=== PATIENT | male | born 1965 | race Caucasian/White ===

== ENCOUNTER 2016-04-21 15:49 | Outpatient (CLI) | payer MEDICAID | END 2016-04-21 15:50 | disposition home or self-care (01) | DX: R63.4 Abnormal weight loss (principal); R91.8 Other nonspecific abnormal finding of lung field ==

== ENCOUNTER 2016-04-22 07:57 | Outpatient (CLI) | payer MEDICAID | END 2016-04-22 07:58 | disposition home or self-care (01) | DX: R63.4 Abnormal weight loss (principal) ==

== ENCOUNTER 2017-03-07 14:24 | Emergency (ER) | payer MEDICAID ==
[2017-03-07 14:37] VITALS: BP 141/86
--- NOTE | 2017-03-07 14:54 | ED Physician Documentation ---
PD HPI HEENT - Stated complaint Stated Complaint: TOOTH PAIN - Chief complaint Chief Complaint: Heent - History obtained from History obtained from: Patient - History of Present Illness Timing - onset: How many days ago (4) Timing - duration: Days (4) Timing - details: Gradual onset, Still present Location: Tooth Improves: Medication Worsens: Temperatures, Everything Associated symptoms: Congestion, Headache Similar symptoms before: Diagnosis (bad teeth) Recently seen: Not recently seen - Additional information Additional information: 51-year-old male with a history of bad teeth has developed another episode of severe tooth pain. Today this is in the left upper jaw anteriorly and he has been dealing with this for about the last 4 days and is now become intolerable. He has been avoiding the dentist for years and he has multiple broken teeth and multiple missing teeth. Review of Systems Constitutional: denies: Fever Eyes: denies: Decreased vision Ears: denies: Ear pain Nose: reports: Congestion. denies: Rhinorrhea / runny nose Throat: reports: Dental pain / toothache Cardiac: denies: Palpitations Respiratory: denies: Dyspnea, Cough GI: denies: Vomiting, Diarrhea PD PAST MEDICAL HISTORY - Past Medical History Past Medical History: Yes Cardiovascular: None Neuro: Seizure disorder Endocrine/Autoimmune: None GI: None Psych: Depression, Anxiety Other Past Medical History: Last seizure a year ago. Does not take any medication - Past Surgical History Past Surgical History: No - Present Medications Home Medications: Ambulatory Orders Medication Instructions Recorded Confirmed Amoxicillin 875 mg PO BID #20 tablet 03/07/17 - Allergies Allergies/Adverse Reactions: Allergies Allergy/AdvReac Type Severity Reaction Status Date / Time No Known Drug Allergies Allergy Verified 08/20/15 10:48 - Social History Does the pt smoke?: Yes Smoking Status: Current every day smoker Does the pt drink ETOH?: No Does the pt have substance abuse?: No - Immunizations Immunizations are current?: Yes Immunizations: TDAP >10years/unknown - POLST Patient has POLST: No PD ED PE NORMAL - Vitals Vital signs reviewed: Yes (hypertensive) - General General: No acute distress, Well developed/nourished - HEENT HEENT: Atraumatic, PERRL, EOMI, Ears normal, Other (There are multiple broken teeth multiple carious teeth and #11 he is specifically tender and broken off at the gumline.) - Neck Neck: Supple, no meningeal sign, No bony TTP - Cardiac Cardiac: RRR, No murmur - Respiratory Respiratory: No respiratory distress, Clear bilaterally - Abdomen Abdomen: Soft, Non tender - Back Back: No CVA TTP - Derm Derm: Normal color, Warm and dry, No rash - Extremities Extremities: No deformity, No edema - Neuro Neuro: No motor deficit, No sensory deficit Eye Opening: Spontaneous Motor: Obeys Commands Verbal: Oriented GCS Score: 15 - Psych Psych: Normal mood, Normal affect Results - Vitals Vitals: Vital Signs - 24 hr 03/07/17 14:35 Temperature 36.8 C Heart Rate 95 Respiratory 16 Rate Blood Pressure 141/86 H O2 Saturation 98 Oxygen O2 Source Room air PD MEDICAL DECISION MAKING - ED course Complexity details: considered differential, d/w patient ED course: 51-year-old male with multiple carious teeth broken teeth and a specific tooth that is bothering him. He is given a tube of [place] and instructed in its use and this is used to cover the top of #11. Departure - Departure Disposition: 01 Home, Self Care Clinical Impression: Pain, dental Condition: Stable Instructions: ED Tooth Pain Follow-Up: [facility] [Provider Group] Prescriptions: Amoxicillin 875 mg PO BID #20 tablet Comments: Today in the Emergency Department your blood pressure was elevated. This can happen from the stress of the visit itself, from a current illness or circumstance or from uncontrolled hypertension. If you take blood pressure medications take your usual mediations, have your blood pressure re-checked in an appropriate setting and follow up any elevation with your primary care doctor.
== END 2017-03-07 15:12 | disposition home or self-care (01) ==
LOC: ED 14:24
DX: K08.89 Other specified disorders of teeth and supporting structures (principal); R03.0 Elevated blood-pressure reading, without diagnosis of hypertension; F17.200 Nicotine dependence, unspecified, uncomplicated
CPT/HCPCS: 99283

== ENCOUNTER 2018-01-11 23:58 | Emergency (ER) | payer MEDICAID ==
[2018-01-12 00:11] VITALS: BP 126/87
--- NOTE | 2018-01-12 00:45 | ED Physician Documentation ---
PD HPI SKIN - Stated complaint Stated Complaint: BUMP ON BACK - Chief complaint Chief Complaint: Wound - History obtained from History obtained from: Patient - History of Present Illness Timing - onset: How many days ago (8) Timing - details: Gradual onset, Constant Location: Back, LLE Quality / character: Itchy, Discolored Associated symptoms: No: Fever Contributing factors: Unknown Recently seen: Not recently seen - Additional information Additional information: c/o red, mildly pruritic rash left back x 8 days. also concerned that his left hip/buttock has had increasing pus d/c and increasing swelling; he has had abscess in this area in the past, including I+D 07/2015 (this ED) Review of Systems Constitutional: reports: Reviewed and negative Skin: reports: Rash PD PAST MEDICAL HISTORY - Past Medical History Cardiovascular: None Endocrine/Autoimmune: None GI: None Psych: Depression, Anxiety - Past Surgical History Past Surgical History: No - Present Medications Home Medications: Ambulatory Orders Medication Instructions Recorded Confirmed Clindamycin HCl [Clindamycin 300MG 300 mg PO Q6HR #39 capsule 01/12/18 CAP] - Allergies Allergies/Adverse Reactions: Allergies Allergy/AdvReac Type Severity Reaction Status Date / Time No Known Drug Allergies Allergy Verified 01/12/18 00:11 - Social History Does the pt smoke?: Yes Smoking Status: Current every day smoker Does the pt drink ETOH?: No Does the pt have substance abuse?: No - Immunizations Immunizations are current?: Yes Immunizations: TDAP >10years/unknown - POLST Patient has POLST: No PD ED PE NORMAL - Vitals Vital signs reviewed: Yes - General General: Alert and oriented X 3, No acute distress, Well developed/nourished - Extremities Extremities: No tenderness to palpate, Normal ROM s pain, No edema PD ED PE EXPANDED - Derm SKin visual: 1 - rash (right parathoracic ovoid, confluent erythema, raised, nontender, no fluctuance or discharge, 3x4 cm.) 2 - swelling (mild swelling, induration, mild erythema, no fluctuance. there is a sinus tract to the skin with scant purulent drainage) Results - Vitals Vitals: Oxygen O2 Source Room air PD MEDICAL DECISION MAKING - ED course Complexity details: reviewed old records, considered differential, d/w patient Departure - Departure Disposition: 01 Home, Self Care Clinical Impression: Abscess and cellulitis Condition: Good Instructions: ED Infec Skin Cellulitis Follow-Up: [facility] [Provider Group] [facility] [Provider Group] Prescriptions: Clindamycin HCl [Clindamycin 300MG CAP] 300 mg PO Q6HR #39 capsule Discharge Date/Time: 01/12/18 01:09
[2018-01-12] MEDS ORDERED: CLINDAMYCIN 150 MG CAPSULE PO STA (01:02)
== END 2018-01-12 01:09 | disposition home or self-care (01) ==
LOC: ED 23:58
DX: L02.416 Cutaneous abscess of left lower limb (principal); L03.312 Cellulitis of back [any part except buttock and flank]; F17.200 Nicotine dependence, unspecified, uncomplicated
CPT/HCPCS: 99283; A9270

== ENCOUNTER 2019-07-12 03:18 | Emergency (ER) | payer MEDICAID ==
--- NOTE | 2019-07-12 03:58 | ED Physician Documentation ---
History of Present Illness - Stated complaint Stated Complaint: R LEG PAIN/SWELLING - Chief complaint Chief Complaint: Ext Problem - History obtained from History obtained from: Patient - History of Present Illness Timing: How many days ago (2-3) Pain level max: 10 Pain level now: 10 Quality: throbbing, sharp Improved by: laying still, laying prone Worsened by: movement, palpation, weight-bearing - Additonal information Additional information: c/o 2-3 days RLE pain and swelling. denies trauma. he says the entire RLE is effected. denies h/o similar symptoms. admits to injecting illicit drugs, including within 1-2 weeks, but he insists not at site anywhere on RLE. he has had some relief of the pain with excedrin Review of Systems Constitutional: reports: Reviewed and negative Eyes: reports: Reviewed and negative Ears: reports: Reviewed and negative Nose: reports: Reviewed and negative Throat: reports: Reviewed and negative Cardiac: reports: Reviewed and negative Respiratory: reports: Reviewed and negative GI: reports: Reviewed and negative : denies: Dysuria, Frequency Skin: reports: Rash Musculoskeletal: reports: Extremity pain, Extremity swelling, Pain with weight bearing Neurologic: reports: Reviewed and negative PD PAST MEDICAL HISTORY - Past Medical History Cardiovascular: None Endocrine/Autoimmune: None GI: None Psych: Depression, Anxiety - Past Surgical History Past Surgical History: No - Present Medications Home Medications: Ambulatory Orders Medication Instructions Recorded Confirmed Clindamycin HCl [Clindamycin 300MG 300 mg PO Q6HR #39 capsule 01/12/18 CAP] - Allergies Allergies/Adverse Reactions: Allergies Allergy/AdvReac Type Severity Reaction Status Date / Time No Known Drug Allergies Allergy Verified 01/12/18 00:11 - Social History Does the pt smoke?: Yes Smoking Status: Current every day smoker Does the pt drink ETOH?: No Does the pt have substance abuse?: No - Immunizations Immunizations are current?: Yes Immunizations: TDAP >10years/unknown - POLST Patient has POLST: No PD ED PE NORMAL - Vitals Vital signs reviewed: Yes - General General: Alert and oriented X 3, Well developed/nourished, Other (lying prone on stretcher, obvious painful distress) - HEENT HEENT: Moist mucous membranes - Neck Neck: Supple, no meningeal sign - Cardiac Cardiac: No murmur - Respiratory Respiratory: No respiratory distress, Clear bilaterally - Abdomen Abdomen: Normal bowel sounds, Soft, Non tender - Neuro Neuro: Alert and oriented X 3, No motor deficit, No sensory deficit Eye Opening: Spontaneous Motor: Obeys Commands Verbal: Oriented GCS Score: 15 PD ED PE EXPANDED - Cardiac Cardiac: Tachy - Extremities Extremities: Pedal Pulses Present, Other (limited flexion at right hip due to pain; only able to flex to approximately 20-30 degrees due to pain) JULIEN LE visual: 1 - swelling, tenderness (Circumferential swelling and tenderness) 2 - rash (sharply-marginated erythema, hot to touch, with most pronounced swelling at lateral aspect with peau dorange appearance. there is no palpable crepitus, although he can tolerate limited amounts of pressure due to the exquisite tenderness) Results - Vitals Vitals: Vital Signs - 24 hr 07/12/19 08:19 Heart Rate 83 Respiratory 16 Rate Blood Pressure 106/69 O2 Saturation 100 Oxygen O2 Source Room air - Labs Labs: Microbiology 07/12/19 06:45 Blood Culture - Preliminary Blood NO GROWTH AFTER 1 DAY 07/12/19 04:35 Blood Culture - Preliminary Blood NO GROWTH AFTER 1 DAY Laboratory Tests 07/12/19 07/12/19 07/12/19 04:35 04:35 04:35 WBC 33.7 H RBC 4.90 Hgb 13.6 L Hct 40.3 L MCV 82.2 MCH 27.8 MCHC 33.7 RDW 15.9 H Plt Count 553 H MPV 8.7 Neut # (Auto) Not Reportable Lymph # (Auto) Not Reportable [place] # (Auto) Not Reportable Eos # (Auto) Not Reportable Baso # (Auto) Not Reportable Absolute Nucleated RBC Not Reportable Total Counted 100 Band Neuts % (Manual) 1 Abnorm Lymph % (Manual) 0 Metamyelocytes % 2 H Myelocytes % 3 H Nucleated RBC % Not Reportable Neutrophils # (Manual) 27.6 H Lymphocytes # (Manual) 2.4 Monocytes # (Manual) 1.7 H Eosinophils # (Manual) 0.3 Basophils # (Manual) 0.0 Differential Comment MANUAL DIFFERENTIAL Platelet Estimate INCREASED (>450,000) RBC Morph Micro Appear NORMAL APPEARANCE ESR Sodium 127 L Potassium 3.8 Chloride 97 L Carbon Dioxide 22 Anion Gap 8.0 BUN 21 H Creatinine 0.9 Estimated GFR (MDRD) 87 L Glucose 128 H Lactic Acid 0.9 Calcium 7.9 L Total Bilirubin 0.2 AST 32 ALT 16 Alkaline Phosphatase 51 Total Protein 6.7 Albumin 2.4 L Globulin 4.3 H Albumin/Globulin Ratio 0.6 L Lipase 22 07/12/19 04:35 WBC RBC Hgb Hct MCV MCH MCHC RDW Plt Count MPV Neut # (Auto) Lymph # (Auto) [place] # (Auto) Eos # (Auto) Baso # (Auto) Absolute Nucleated RBC Total Counted Band Neuts % (Manual) Abnorm Lymph % (Manual) Metamyelocytes % Myelocytes % Nucleated RBC % Neutrophils # (Manual) Lymphocytes # (Manual) Monocytes # (Manual) Eosinophils # (Manual) Basophils # (Manual) Differential Comment Platelet Estimate RBC Morph Micro Appear ESR 14 Sodium Potassium Chloride Carbon Dioxide Anion Gap BUN Creatinine Estimated GFR (MDRD) Glucose Lactic Acid Calcium Total Bilirubin AST ALT Alkaline Phosphatase Total Protein Albumin Globulin Albumin/Globulin Ratio Lipase - Rads (name of study) right hip xrays w/ pelvis Radiology: Prelim report reviewed, See rad report CT right hip Radiology: Prelim report reviewed, See rad report RLE US Radiology: Prelim report reviewed, See rad report PD MEDICAL DECISION MAKING - ED course Complexity details: reviewed results, re-evaluated patient, considered differential, d/w patient ED course: patient initially had good relief with IV dilaudid, but eventually required repeated doses with decreasing effect. he remained afebrile during ED stay with stable blood pressure readings throughout. After my initial assessment, I contacted Dr. Loera to discuss optimal approach to w/u given concern for septic arthritis of hip joint. radiology tests ordered pursuant to this discussion. subcutaneous gas noted on plain films as well as CT, strongly raising suspicion for NSTI. IV abx started, contacted [facility] and they accept transfer to ED (but surgeon accepting; I spoke with both the accepting surgeon as well as the ED physician) Departure - Departure Disposition: 02 Transfer Acute Care Hosp Clinical Impression: Necrotizing fasciitis Condition: Stable Discharge Date/Time: 07/12/19 08:27
[2019-07-12] MEDS ORDERED: HYDROmorphone 1 MG/ML SYRINGE IVP STA (04:28)
[2019-07-12] MEDS ORDERED: SODIUM CHLORIDE 0.9% 1,000 ML IV STA ×2 (04:28→07:59)
[2019-07-12 04:53] LABS: BASOPHILS % (AUTO) 0.8 %; EOSINOPHILS % (AUTO) 0.4 %; HGB - HEMOGLOBIN 13.6 g/dL (14.0-18.0); LYMPHOCYTES % (AUTO) 7.1 %; MEAN CORPUSCULAR HEMOGLOBIN 27.8 pg (27.0-31.0); MEAN CORPUSCULAR HGB CONC 33.7 g/dL (32.0-36.0); MEAN CORPUSCULAR VOLUME 82.2 fL (80.0-94.0); MEAN PLATELET VOLUME 8.7 fL (7.4-11.4); MONOCYTES % (AUTO) 6.9 %; NEUTROPHILS % (AUTO) 80.2 %; PLT - PLATELET COUNT 553 10^3/uL (130-450); RED CELL DISTRIBUTION WIDTH 15.9 % (12.0-15.0); WHITE BLOOD COUNT 33.7 x10^3/uL (4.8-10.8)
[2019-07-12 04:59] LABS: ABNORMAL LYMPHS % (MANUAL) 0 %
[2019-07-12 05:03] LABS: ALBUMIN 2.4 g/dL (3.2-5.5); ALBUMIN/GLOBULIN RATIO 0.6 (1.0-2.2); BILIRUBIN,TOTAL 0.2 mg/dL (0.2-1.0); CALCIUM 7.9 mg/dL (8.5-10.3); CREATININE 0.9 mg/dL (0.6-1.2); TOTAL PROTEIN 6.7 g/dL (6.7-8.2)
[2019-07-12] MEDS ORDERED: HYDROmorphone 1 MG/ML CARPUJECT IM STA (05:16)
[2019-07-12 05:22] LABS: BAND NEUTROPHILS % (MANUAL) 1 %; DIFFERENTIAL COMMENT MANUAL DIFFERENTIAL; EOSINOPHILS # (MANUAL) 0.3 10^3/uL (0-0.7); LYMPHOCYTES # (MANUAL) 2.4 10^3/uL (1.5-3.5); LYMPHOCYTES % (MANUAL) 7 %; METAMYELOCYTES % (MANUAL) 2 %; MONOCYTES # (MANUAL) 1.7 10^3/uL (0.0-1.0); MYELOCYTES % (MANUAL) 3 %; PLATELET ESTIMATE, MANUAL INCREASED (>450,000) (NORMAL); RBC MORPHOLOGY (MULTIPLE) NORMAL APPEARANCE (NORMAL)
--- NOTE | 2019-07-12 05:49 | XRAY Report ---
Reason: right hip pain, swelling Procedure Date: 07/12/2019 Accession Number: [id number] / [id number] Procedure: XR - Hip w/Pelvis 2-3V RT CPT Code: Final Report FULL RESULT: EXAM: RIGHT HIP RADIOGRAPHY EXAM DATE: 07/12/2019 05:38 AM. CLINICAL HISTORY: Right hip pain, swelling. COMPARISON: None. TECHNIQUE: 2 views. FINDINGS: Bones: Normal. No fractures or bone lesion. Joints: Normal. No dislocation. The hip joint space is preserved. Soft Tissues: Subcutaneous gas in the proximal right. No radiopaque foreign body evident. IMPRESSION: Subcutaneous gas in the proximal right thigh. No evidence of acute fracture. RADIA
[2019-07-12] MEDS ORDERED: CLINDAMYCIN 900 MG/50 ML 50 ML IV STA (06:20)
--- NOTE | 2019-07-12 06:27 | CT Report ---
Reason: pain, swelling Procedure Date: 07/12/2019 Accession Number: [id number] / [id number] Procedure: CT - LOWER EXTREMITY WO - RT CPT Code: Final Report FULL RESULT: EXAM: RIGHT HIP CT WITHOUT CONTRAST EXAM DATE: 07/12/2019 05:21 AM. CLINICAL HISTORY: Pain, swelling. COMPARISON: None. TECHNIQUE: Thin-section axial images were acquired of the hip without contrast. Post-processing: Coronal and sagittal reformats. Other: None. In accordance with CT protocol optimization, one or more of the following dose reduction techniques were utilized for this exam: automated exposure control, adjustment of mA and/or KV based on patient size, or use of iterative reconstructive technique. FINDINGS: Bones: No fracture or bone lesion. Joints: The visualized hip joint spaces are normal. No calcified loose bodies. No large effusions. The other visualized joint spaces are normal. Musculature: Normal. No fatty atrophy. Other: Induration of the subcutaneous fat, worse posteriorly, compatible with cellulitis. Subcutaneous gas in the posterior lateral fat of the proximal right thigh, but no organized abscess is identified. Incidental lipoma noted adjacent to the midshaft femur. IMPRESSION: Cellulitis. Subcutaneous gas, which may be due to laceration or gas forming bacteria. No organized abscess seen. RADIA
[2019-07-12] MEDS ORDERED: VANCOMYCIN INJ 1 GM in SODIUM CHLORIDE 0.9% 500 ML IV STA (06:28)
[2019-07-12] MEDS ORDERED: PIPERACILLIN/TAZOBACTAM 4.5 GM in SODIUM CHLORIDE 0.9% MINIBAG 100 ML IV STA (06:29)
[2019-07-12] MEDS ORDERED: CLINDAMYCIN 600 MG/50 ML 50 ML IV ONE (06:30)
[2019-07-12] MEDS ORDERED: CLINDAMYCIN 600 MG/50 ML 50 ML IV STA (06:31)
[2019-07-12] MEDS ORDERED: HYDROmorphone 1 MG/ML CARPUJECT IVP STA ×2 (06:32→08:01)
--- NOTE | 2019-07-12 06:35 | Ultrasound Report ---
Reason: RLE swelling Procedure Date: 07/12/2019 Accession Number: [id number] / [id number] Procedure: US - Duplex Ext Veins Right CPT Code: Final Report FULL RESULT: EXAM: RIGHT LOWER EXTREMITY VENOUS ULTRASOUND EXAM DATE: 07/12/2019 06:08 AM. CLINICAL HISTORY: RLE swelling and pain. COMPARISON: None. TECHNIQUE: Real-time sonographic vascular imaging was performed by the switch adjuster through the lower extremity utilizing both color-flow and Doppler spectral analysis. Multiple outside dealer sales representative static images were saved for review. FINDINGS: Common Femoral Vein (CFV): Normal. CFV-GSV Junction: Normal. Profunda Femoral Vein (PFV): Normal. Femoral Vein (FV) Prox: Normal. Femoral Vein (FV) Mid: Normal. Femoral Vein (FV) Dist: Normal. Popliteal Vein: Normal. Posterior Tibial Veins: Normal. Peroneal Veins: Normal. Other: Diffuse superficial soft tissue swelling, which results in suboptimal visualization of the venous system. IMPRESSION: No evidence for deep venous thrombosis. RADIA
[2019-07-12 08:20] VITALS: BP 106/69
--- NOTE | 2019-07-12 09:21 | MISCELLANEOUS PROVIDER NOTE ---
Miscellaneous Provider Note - - Note: Called by Dr. Gomez approximately 4:30am for "advice" regarding imaging and next steps with this patient after "just coming out of room" from initial eval. Formal consultation not requested. Described entire RLE swelling and reportedly initially though dvt but found positive hip exam and noted concern for infection though no historical risk factors noted. Discussed xrays then MRI and possible interventional rad aspiration of hip pending MRI. MRI reportedly not possible. Repeat exam and discussion- reports findings distal to hip in proximal thigh. Duplex r/o dvt, Xrays and CT ordered. Advised Dr. Gomez or provider to whom he signs out, to call with additional questions/to discuss as necessary pending above (regardless of time- despite no ortho ED coverage 07/12/2019). No additional contact regarding this patient from ED. Studies reviewed suggesting subcutaneus gas- and note xfer to acute care hospital, though to be appropriate with limited information (documentation not yet complete) available at this time.
== END 2019-07-12 08:27 | disposition short-term general hospital (02) ==
LOC: ED 03:18
DX: M72.6 Necrotizing fasciitis (principal); F17.200 Nicotine dependence, unspecified, uncomplicated
CPT/HCPCS: 36415; 73502; 73700; 80053; 83605; 83690; 85025; 85651; 87040; 93971; 96365; 96375; 96376; 99284; 99285; J1170; J3370